=== PATIENT | male | born 1965 | race Caucasian/White ===

== ENCOUNTER 2016-11-29 07:48 | Emergency (ER) ==
[2016-11-29 07:57] VITALS: BP 159/84
[2016-11-29] MEDS ORDERED: DILAUDID ONE (08:12)
[2016-11-29] MEDS ORDERED: DILAUDID IM ONE (08:12)
--- NOTE | 2016-11-29 08:42 | PROVIDER DOCUMENTATION ---
HPI-Musculoskeletal Pain/Inj - GENERAL Chief Complaint: Back Pain Stated Complaint: BACK PAIN Time Seen by Provider: 11/29/16 08:00 Source: patient, family - HX OF PRESENT ILLNESS-MUSKULOSKELTAL Nature of Presenting Problem: Pt is here from [place] as a traveler with mom - mom is looking for a friend since a long time ago, and they have not find her in this town yet. There 1st stop in this town is ER today. Pt reports severe LBP flare up and wants Dilaudid shots - 2 mg initial dose and 3 min later another 2 mg IM. Reports he had MRI done in 2012 and was diagnosed with spinal stenosis. Pt is on Dilaudid pills at home, but it does not work when it flares up. Pt refusing any other pills, including Percocet 10mg I offered. Strongly requesting the shots according to his regimen. Mom at the bedside supporting pt's each statement. Stating that they go to ERs do this type of request at regular bases. Pt states that his body wt and back pain is a natural selection for him to be in the situation of needing this treatment regimen. Pt moves around and repositioning himself at the ER bed w/o no difficulty and in no distress. Quality of Pain: reports: aching, sharp Severity in ED: severe Onset/Duration: other (Chronic) Timing: still present Modifying Factors: improves with: nothing Any recent injury?: No Similar Symptoms Previously?: Yes Recently seen or treated by another doctor?: Yes - FALL INJURY Location of Pain/Injury: reports: back Pain Radiation: reports: no radiation Reason for Fall: reports: unknown Symptoms prior to fall:: reports: none Loss of Consciousness: no loss of consciousness - BACK & NECK PAIN/INJURY Back/Neck Pain Location: reports: lumbar spine History of Chronic Neck or Back Pain?: No - LOWER EXTREMITY PAIN/INJURY Associated Symptoms: reports: denies symptoms Review of Systems - Adult - REVIEW OF SYSTEMS - ADULT Constitutional: reports: no symptoms reported Eyes: reports: no symptoms reported Ears, Nose, Mouth & Throat: reports: no symptoms reported Cardiovascular: reports: no symptoms reported Respiratory: reports: no symptoms reported Gastrointestinal: reports: no symptoms reported Genitourinary: reports: no symptoms reported Musculoskeletal: reports: see HPI, back pain Integumentary: reports: no symptoms reported Neurological: reports: no symptoms reported Psychiatric: reports: no symptoms reported Endocrine: reports: no symptoms reported Hematologic/Lymphatic: reports: no symptoms reported Allergic/Immunologic: reports: no symptoms reported All Other Systems: Reviewed and Negative Past History - Adult - PAST MEDICAL HISTORY-ADULT Review of Records: reports: Nursing Assessment Review, Medications Reviewed Gastrointestinal: reports: GERD Musculoskeletal: reports: chronic pain Endocrine/Immune: reports: Diabetes Other Conditions: reports: other (Gout) - PRIOR SURGERIES/PROCEDURES Surgical/Procedure History: reports: cholecystectomy - IMMUNIZATION STATUS Childhood Immunizations: See Nurse Assessment Flu Vaccine: See Nurse Assessment Physical Exam-Injury Related - Physical Exam-Injury Related General Appearance: appears well, alert, no apparent distress Eyes: PERRL/EOMI, pink conjunctivae Head, Ears, Nose, Mouth & Throat: normocephalic/atraumatic, moist mucous membranes Neck: non-tender, full range of motion, supple, normal inspection Respiratory: chest non-tender, lungs clear, normal breath sounds, no pleuratic chest pain, no respiratory distress Cardiovascular: normal peripheral pulses, regular rate, rhythm, no edema Abdominal Exam: normal bowel sounds, non tender, soft, no organomegaly Back Exam: normal inspection, no CVA tenderness, no vertebral tenderness, muscle spasm, other Extremity: normal range of motion, non-tender, normal gait, normal inspection Integumentary: normal color, warm/dry - Glascow Coma Score Best Eye Response ([place]efors): (4) open spontaneously Best Verbal Response (Sulaiman): (5) oriented Best Motor Response (Sulaiman): (6) obeys commands Sulaiman Total: 15 Progress - PLAN OF CARE/RESULTS Progress/Plan/Lab Results: Orders Category Date Time Status Hydromorphone [Dilaudid] Med 11/29/16 08:12 Discontinued 2 mg .ROUTE .STK-MED ONE Hydromorphone [Dilaudid] Med 11/29/16 08:12 Discontinued 2 mg IM NOW ONE Orders Category Date Time Status Hydromorphone [Dilaudid] Med 11/29/16 08:12 Discontinued 2 mg .ROUTE .STK-MED ONE Hydromorphone [Dilaudid] Med 11/29/16 08:12 Discontinued 2 mg IM NOW ONE - REASSESSMENT Reassessment #1 Time Reassessed: 08:46 Status: other (I had length discussion with pt and his mom, and I tried to help them for the travel and 2mg Dilaudid IM given, but no 2nd rounds shots per his request, because I do not feel comfortable to do it. They understand the management plan.) Departure - Departure Time of Disposition Order: 08:45 DIAGNOSIS: Chronic lower back pain Qualifiers: Back pain laterality: unspecified Sciatica presence: unspecified whether sciatica present Qualified Code(s): M54.5 - Low back pain; G89.29 - Other chronic pain Disposition: HOME 01 Certified Medical Emergency: Emergent Condition: Stable Additional Instructions: Follow up with Ortho-[facility] extension specialist and pain clinic [facility] for further management.
== END 2016-11-29 08:55 | disposition home or self-care (01) ==
LOC: P.ED 07:48
DX: M54.5 Low back pain (principal); G89.29 Other chronic pain; E11.9 Type 2 diabetes mellitus without complications; M10.9 Gout, unspecified
CPT/HCPCS: 96372; J1170